=== PATIENT | female | born 1975 | race Caucasian/White ===

== ENCOUNTER 2016-08-15 00:28 | Emergency (ER) | payer OTHER | END 2016-08-15 02:50 | disposition short-term general hospital (02) | LOC: ER1 00:28 | DX: I61.0 Nontraumatic intracerebral hemorrhage in hemisphere, subcortical (principal); I10 Essential (primary) hypertension; F17.210 Nicotine dependence, cigarettes, uncomplicated | CPT/HCPCS: 31500; 36415; 36600; 70450; 71010; 80307; 81001; 82803; 84703; 94002; 96374; 96375; 99285; A4628 ==

== ENCOUNTER → 2020-06-23 | Outpatient (CLI) | payer MEDICARE ==
[~2020-06-23] MED LIST: FLEXERIL 10 MG10 MG PO; NAPROSYN500 MG PO
== END ==
LOC: EMI 13:26
DX: I63.9 Cerebral infarction, unspecified (principal); G93.89 Other specified disorders of brain; J32.0 Chronic maxillary sinusitis
CPT/HCPCS: 70551